=== PATIENT | female | born 1945 | race African-American/Black ===

== ENCOUNTER 2021-02-22 09:16 | Inpatient (IN) | payer OTHER, MEDICAID ==
[~2021-02-22] VITALS: Ht 162.6 cm; Wt 37.2 kg
[2021-02-22] MEDS ORDERED: SODIUM CHLORIDE 0.9% 1000ML BAG (SEPSIS BOLUS) IV ONE (09:45)
[2021-02-22 10:51] LABS: BASOPHILS % 0.4 % (0.0-2.0); EOSINOPHILS % 0.6 % (0.0-5.0); HEMATOCRIT. 38.8 % (36.0-48.0); HEMOGLOBIN. 13.5 g/dL (12.0-16.0); LYMPHOCYTES % 15.2 % (20.0-50.0); MEAN CORPUSCULAR HEMOGLOBIN 30.9 pg (28.0-32.0); MEAN CORPUSCULAR VOLUME 88.5 fL (81.0-99.0); MEAN PLATELET VOLUME 10.1 fl (7.4-10.4); MONOCYTES % 5.2 % (2.0-8.0); NEUTROPHILS % 78.6 % (40.0-76.0); PLATELET 316 x1000/uL (130-400); RED BLOOD CELL COUNT 4.38 mill/uL (4.2-5.4); RED CELL DISTRIBUTION WIDTH 14.6 % (11.6-14.6)
[2021-02-22 10:57] LABS: CHLORIDE 98 mEq/L (98-107)
[2021-02-22 11:00] LABS: INR 1.1; PROTHROMBIN TIME 11.7 sec (9.6-11.0)
[2021-02-22] MEDS ORDERED: MAGNESIUM/ALUMINUM HYDROXIDE/SIMETHICONE 30ML UDC PO PRN (12:45)
[2021-02-22] MEDS ORDERED: LORAZEPAM 0.5MG TABLET PO PRN (12:45)
[2021-02-22] MEDS ORDERED: ACETAMINOPHEN 650MG SUPP PR PRN (12:45)
[2021-02-22] MEDS ORDERED: NA PHOS,M-B/NA PHOS,DI-BA ENEMA 118ML PR PRN (12:45)
[2021-02-22] MEDS ORDERED: DIPHENHYDRAMINE 50MG/ML VIAL IV PRN (12:45)
[2021-02-22] MEDS ORDERED: ACETAMINOPHEN 325MG TABLET PO PRN (12:45)
[2021-02-22] MEDS ORDERED: GUAIFENESIN 200MG/10ML SUGAR FREE UDC PO PRN (12:45)
[2021-02-22] MEDS ORDERED: IPRATROPIUM/ALBUTEROL 0.5-3(2.5)MG/3ML NEB NEB PRN (12:45)
[2021-02-22] MEDS ORDERED: DOCUSATE SODIUM 100MG CAPSULE PO PRN (12:45)
[2021-02-22] MEDS ORDERED: ONDANSETRON HCL 4MG/2ML INJ IV PRN (12:45)
[2021-02-22] MEDS ORDERED: CEFTRIAXONE 1 G PREMIX 50 ML IV SCH (13:00)
[2021-02-22] MEDS: AMLODIPINE 5MG TABLET PO SCH (13:07)
[2021-02-22] MEDS ORDERED: LABETALOL 5MG/ML SYR 20 MG/4 ML SYRINGE IV NR (13:15)
[2021-02-22] MEDS ORDERED: NALOXONE HCL 0.4MG/ML VIAL IV PRN (13:15)
[2021-02-22] MEDS ORDERED: POTASSIUM CHLORIDE INJ 40 MEQ in DEXT 5% WATER 250 ML IV NR (14:00)
[2021-02-22] MEDS: HYDRALAZINE 20MG/ML VIAL IV PRN ×2 (14:46→15:59)
[2021-02-22] MEDS: CLONIDINE 0.1MG TABLET PO PRN (15:25)
[2021-02-22 17:00] VITALS: BP 140/79
[2021-02-22] MEDS: MORPHINE SULFATE 2 MG/ML CPJ (NOT FOR IM USE) IV PRN (18:14)
[2021-02-22] MEDS ORDERED: AMLO10TA80 PO (18:49)
[2021-02-22] MEDS ORDERED: ATOR40TA70 PO (18:49)
[2021-02-22] MEDS ORDERED: LISI20TA31 PO (18:49)
[2021-02-22] MEDS ORDERED: FERR325T6 PO (18:49)
[2021-02-22] MEDS ORDERED: DONE23TA3 PO (18:49)
[2021-02-22] MEDS ORDERED: LABE200T9 PO (18:49)
[2021-02-22 20:00] VITALS: BP 156/50
[2021-02-22] MEDS: FAMOTIDINE 20MG/2ML VIAL IV SCH (20:16)
[2021-02-22] MEDS: DEXT 5%/0.45% NACL 1000ML 1,000 ML IV SCH (20:16)
[2021-02-22] MEDS: HYDROCODONE/ACETAMINOPHEN 5/325MG TABLET PO PRN (20:18)
[2021-02-23] VITALS: BP 142/51
[2021-02-23 04:00] VITALS: BP 159/78
[2021-02-23] MEDS: DEXT 5%/0.45% NACL 1000ML 1,000 ML IV SCH ×2 (05:14→21:39)
[2021-02-23] MEDS: MORPHINE SULFATE 2 MG/ML CPJ (NOT FOR IM USE) IV PRN ×3 (05:18→18:30)
[2021-02-23 05:43] LABS: CHLORIDE 100 mEq/L (98-107)
[2021-02-23] MEDS ORDERED: *PATIENT'S OWN MEDICATION STORAGE XX SCH (05:45)
[2021-02-23 05:51] LABS: HDL CHOLESTEROL 62 mg/dL (40-59)
[2021-02-23 05:52] LABS: LDL CHOLESTEROL 112 mg/dL (5-100)
[2021-02-23 06:07] LABS: BASOPHILS % 0.4 % (0.0-2.0); EOSINOPHILS % 0.1 % (0.0-5.0); HEMATOCRIT. 35.9 % (36.0-48.0); HEMOGLOBIN. 11.9 g/dL (12.0-16.0); LYMPHOCYTES % 9.7 % (20.0-50.0); MEAN CORPUSCULAR HEMOGLOBIN 29.5 pg (28.0-32.0); MEAN CORPUSCULAR VOLUME 89.1 fL (81.0-99.0); MEAN PLATELET VOLUME 10.5 fl (7.4-10.4); MONOCYTES % 8.6 % (2.0-8.0); NEUTROPHILS % 81.2 % (40.0-76.0); PLATELET 276 x1000/uL (130-400); RED BLOOD CELL COUNT 4.03 mill/uL (4.2-5.4); RED CELL DISTRIBUTION WIDTH 14.3 % (11.6-14.6)
[2021-02-23 08:06] VITALS: BP 176/70
[2021-02-23] MEDS: AMLODIPINE 5MG TABLET PO SCH (08:49)
[2021-02-23 12:14] VITALS: BP 146/58
[2021-02-23] MEDS ORDERED: SODIUM POLYSTYRENE SULFONATE 15 G/60 ML BOT PO NR (12:30)
[2021-02-23 15:46] VITALS: BP 154/72
[2021-02-23] MEDS: CEFTRIAXONE 1,000 MG in DEXTROSE 5% WATER 50 ML IV SCH (15:57)
[2021-02-23 20:29] VITALS: BP 194/98
[2021-02-23] MEDS: FAMOTIDINE 20MG/2ML VIAL IV SCH (21:40)
[2021-02-24] VITALS (8 sets, daily range): BP systolic 121–206; BP diastolic 57–91
[2021-02-24] MEDS: HYDRALAZINE 20MG/ML VIAL IV PRN ×3 (00:42→18:44)
[2021-02-24] MEDS: MORPHINE SULFATE 2 MG/ML CPJ (NOT FOR IM USE) IV PRN ×5 (01:51→20:08)
[2021-02-24] MEDS: CLONIDINE 0.1MG TABLET PO PRN (04:12)
[2021-02-24] MEDS: AMLODIPINE 5MG TABLET PO SCH (08:54)
[2021-02-24] MEDS: HYDROCODONE/ACETAMINOPHEN 5/325MG TABLET PO PRN (08:55)
[2021-02-24] MEDS ORDERED: CEFTRIAXONE 1 G PREMIX 50 ML IV SCH (13:00)
[2021-02-24] MEDS: DEXT 5%/0.45% NACL 1000ML 1,000 ML IV SCH (15:00)
[2021-02-24] MEDS: CEFTRIAXONE 1,000 MG in DEXTROSE 5% WATER 50 ML IV SCH (17:29)
[2021-02-24] MEDS: FAMOTIDINE 20MG/2ML VIAL IV SCH (20:08)
== END 2021-02-24 20:30 | disposition hospice, inpatient (51) | DRG 598 ==
LOC: ER 09:16 → 6WST 11:40 → EDBEDREQ 11:43 → EDBEDREQSVC 12:21 → SUPCPDRO 12:41 → ENRESERV 13:07
PROVIDERS: ADMIT Internal Medicine; ATTEND Internal Medicine
DX: C79.81 Secondary malignant neoplasm of breast (principal); R64 Cachexia; Z68.1 Body mass index [BMI] 19.9 or less, adult; E46 Unspecified protein-calorie malnutrition; E86.0 Dehydration; E03.9 Hypothyroidism, unspecified; E83.52 Hypercalcemia; E87.5 Hyperkalemia; Z66 Do not resuscitate; Z20.822 Contact with and (suspected) exposure to COVID-19; G30.9 Alzheimer's disease, unspecified; F02.80 Dementia in other diseases classified elsewhere, unspecified severity, without behavioral disturbance, psychotic disturbance, mood disturbance, and anxiety; M89.8X8 Other specified disorders of bone, other site; R74.01 Elevation of levels of liver transaminase levels; M79.604 Pain in right leg; R74.8 Abnormal levels of other serum enzymes; E87.6 Hypokalemia; I10 Essential (primary) hypertension; Z86.73 Personal history of transient ischemic attack (TIA), and cerebral infarction without residual deficits; Z78.1 Physical restraint status; R62.7 Adult failure to thrive
CPT/HCPCS: 36415; 71045; 73502; 73552; 73590; 80053; 80061; 83605; 84132; 84145; 84484; 85025; 99285; J0360; J0696; J2270; J3480; J3490; J7030; J7060; U0003; U0005